=== PATIENT | female | born 1935 | race Caucasian/White ===

== ENCOUNTER 2019-08-12 23:58 | Inpatient (IN) ==
[2019-08-13] MEDS ORDERED: ONDANSETRON 4 MG/2 ML VIAL IV STA (01:01)
[2019-08-13] MEDS ORDERED: SODIUM CHLORIDE 0.9% 500 ML IV STA (01:01)
[2019-08-13] MEDS ORDERED: HYDROmorphone 2 MG/1 ML VIAL IV PRN ×2 (01:01→03:39)
[2019-08-13] MEDS ORDERED: ALUM/MAG/SIMETH/LIDO VISC 1:1 30 ML BOTTLE PO STA (01:01)
[2019-08-13] MEDS ORDERED: PANTOPRAZOLE 40 MG VIAL IV STA (01:01)
[2019-08-13 01:29] LABS: Basophils % 0.5 % (0.0-0.8); Eosinophils % 0.2 % (0.00-10.9); Hematocrit 34.7 VOL% (35.7-47.0); Hemoglobin 12.3 GM/DL (12.0-16.0); Immature Granulocytes % 0.3 %; Immature Granulocytes Absolute 0.03 #; Lymphocytes % 11.8 % (21.3-54.2); Mean Corpuscular HGB Conc 35.4 GM/DL (32-36); Mean Platelet Volume 9.5 FL (9.6-12.0); Monocytes % 12.8 % (1.7-12.7); Neutrophils % 74.4 % (38.7-73.9); Platelet Count 278 T/CUMM (130-400); Red Blood Count 3.99 MC/CUMM (3.8-5.5); Red Cell Distribution Width 11.3 % (9.3-17.3); White Blood Count 8.8 T/CUMM (4-12)
[2019-08-13 01:47] LABS: Albumin 3.5 G/DL (3.4-5.0); Bilirubin,Total 0.8 MG/DL (0.2-1.0); Calcium 9.3 MG/DL (8.5-10.1); Osmolality,Calculated 238.5 MOS/KG (273-304); Total Protein 7.2 G/DL (6.4-8.3)
[2019-08-13] MEDS ORDERED: MAGNESIUM SULF RIDER 2 GM in PREMIX 1 EACH IV STA (02:09)
[2019-08-13] MEDS ORDERED: POTASSIUM CHLORIDE 20 MEQ TABLET PO STA (02:10)
[2019-08-13 03:17] LABS: Apearance,Urine Slightly Hazy (Clear); Bacteria,Urine Occasional /HPF (Few); Bilirubin,Urine Negative (Negative); Blood, Urine Negative (Negative); Glucose,Urine (UA) Negative (Negative); Ketones,Urine 20 mg/dL (Negative); Mucus,Urine Occasional /LPF (Occasional); Nitrite,Urine Negative (Negative); Protein,Urine Negative; RBC,Urine 5 /HPF (0-4); Urine Color Yellow (Yellow); Urine Specific Gravity 1.015 (1.001-1.035); Urine Urobilinogen < 2.0 EU/DL (0.2-1.0); WBC,Urine 1 /HPF (0-6)
[2019-08-13] MEDS ORDERED: ONDANSETRON 4 MG/2 ML VIAL IV PRN (03:39)
[2019-08-13] MEDS ORDERED: ACETAMINOPHEN 325 MG TABLET PO PRN (03:39)
[2019-08-13] MEDS: SODIUM CHLORIDE 0.9% 1,000 ML IV SCH ×3 (04:30→22:13)
[2019-08-13 05:57] LABS: Basophils % 0.3 % (0.0-0.8); Eosinophils % 0.1 % (0.00-10.9); Hematocrit 32.9 VOL% (35.7-47.0); Hemoglobin 11.6 GM/DL (12.0-16.0); Immature Granulocytes % 0.4 %; Immature Granulocytes Absolute 0.03 #; Lymphocytes # 0.7 10*3/uL (1.4-4.0); Lymphocytes % 9.1 % (21.3-54.2); Mean Corpuscular HGB Conc 35.3 GM/DL (32-36); Mean Corpuscular Volume 86.1 FL (87-102); Mean Platelet Volume 9.6 FL (9.6-12.0); Monocytes % 10.7 % (1.7-12.7); Neutrophils % 79.4 % (38.7-73.9); Platelet Count 271 T/CUMM (130-400); Red Blood Count 3.82 MC/CUMM (3.8-5.5); Red Cell Distribution Width 11.7 % (9.3-17.3); White Blood Count 7.2 T/CUMM (4-12)
[2019-08-13 06:09] LABS: Albumin 3.2 G/DL (3.4-5.0); Bilirubin,Total 0.6 MG/DL (0.2-1.0); Calcium 8.8 MG/DL (8.5-10.1); Osmolality,Calculated 246.9 MOS/KG (273-304); Risk Ratio 2.54; Total Protein 6.7 G/DL (6.4-8.3); VLDL CHOLESTEROL 13.8 MG/DL
[2019-08-13] MEDS ORDERED: CALCIUM VITAMIN D3 VITAMIN K PO SCH (09:00)
[2019-08-13] MEDS ORDERED: NON-FORMULARY MEDICATION (Omeprazole 20 MG) PO SCH (09:00)
[2019-08-13] MEDS ORDERED: TRIAMTERENE 50 MG CAPSULE PO SCH (09:00)
[2019-08-13] MEDS: ASCORBIC ACID 500 MG TABLET PO SCH (09:22)
[2019-08-13] MEDS: CETIRIZINE 10 MG TABLET PO SCH (09:22)
[2019-08-13] MEDS: NIFEdipine 10 MG CAPSULE PO SCH (09:22)
[2019-08-13] MEDS: POTASSIUM GLUCONATE 500 MG TABLET PO SCH (09:22)
[2019-08-13] MEDS: DOCUSATE SODIUM 100 MG CAPSULE PO SCH ×2 (09:22→22:12)
[2019-08-13] MEDS: CALCIUM (CARBONATE)/VITAMIN D 500 MG-200 UNIT TABLET PO SCH (09:22)
[2019-08-13] MEDS: PANTOPRAZOLE 40 MG VIAL IV SCH (09:24)
[2019-08-13] MEDS: FLUTICASONE 50 MCG NASAL SPRAY 16 GM BOTTLE BOTH NARES SCH (09:25)
[2019-08-13] MEDS: PIPERACILLIN/TAZOBACTAM 3,375 MG in SODIUM CHLORIDE 0.9% 100 ML IV SCH ×2 (12:11→22:12)
[2019-08-13] MEDS ORDERED: SIMVASTATIN 10 MG TABLET PO SCH (21:00)
[2019-08-14] MEDS: SODIUM CHLORIDE 0.9% 1,000 ML IV SCH (04:19)
[2019-08-14] MEDS: PIPERACILLIN/TAZOBACTAM 3,375 MG in SODIUM CHLORIDE 0.9% 100 ML IV SCH ×2 (04:19→12:21)
[2019-08-14 07:44] LABS: Basophils # 0.1 10*3/uL (0.0-0.2); Basophils % 1.5 % (0.0-0.8); Eosinophils # 0.1 10*3/uL (0.0-0.87); Eosinophils % 2.5 % (0.00-10.9); Hematocrit 31.7 VOL% (35.7-47.0); Hemoglobin 10.8 GM/DL (12.0-16.0); Immature Granulocytes % 0.4 %; Immature Granulocytes Absolute 0.02 #; Lymphocytes # 1.2 10*3/uL (1.4-4.0); Mean Corpuscular HGB Conc 34.1 GM/DL (32-36); Mean Corpuscular Volume 92.2 FL (87-102); Mean Platelet Volume 9.6 FL (9.6-12.0); Monocytes % 16.7 % (1.7-12.7); Neutrophils % 56.9 % (38.7-73.9); Platelet Count 268 T/CUMM (130-400); Red Blood Count 3.44 MC/CUMM (3.8-5.5); Red Cell Distribution Width 12.3 % (9.3-17.3); White Blood Count 5.2 T/CUMM (4-12)
[2019-08-14 08:00] LABS: Albumin 2.8 G/DL (3.4-5.0); Bilirubin,Total 0.4 MG/DL (0.2-1.0); Calcium 8.6 MG/DL (8.5-10.1)
[2019-08-14 08:11] LABS: Eosinophils 3 % (0-10); Lymphocytes 21 % (20-55); Segmented Neutrophils 52 % (50-85); Total Cells Counted 100
[2019-08-14 08:12] LABS: Microcytosis Slight; Platelet Estimate Normal
[2019-08-14 08:13] LABS: Atypical Lymphocytes Few
[2019-08-14] MEDS: POTASSIUM GLUCONATE 500 MG TABLET PO SCH (08:42)
[2019-08-14] MEDS: DOCUSATE SODIUM 100 MG CAPSULE PO SCH (08:42)
[2019-08-14] MEDS: CALCIUM (CARBONATE)/VITAMIN D 500 MG-200 UNIT TABLET PO SCH (08:42)
[2019-08-14] MEDS: ASCORBIC ACID 500 MG TABLET PO SCH (08:42)
[2019-08-14] MEDS: CETIRIZINE 10 MG TABLET PO SCH (08:42)
[2019-08-14] MEDS: NIFEdipine 10 MG CAPSULE PO SCH (08:42)
[2019-08-14] MEDS: FLUTICASONE 50 MCG NASAL SPRAY 16 GM BOTTLE BOTH NARES SCH (08:43)
[2019-08-14] MEDS: PANTOPRAZOLE 40 MG VIAL IV SCH (08:43)
[2019-08-14] MEDS ORDERED: DOCUSATE SODIUM 100 MG CAPSULE PO PRN (10:22)
[2019-08-14 12:13] VITALS: BP 139/55
== END 2019-08-14 15:28 | disposition home or self-care (01) | DRG 372 ==
LOC: N.ED 23:58 → N.EDINP 08-13 03:11 → N.TELEN 08-13 03:38
PROVIDERS: ADMIT Family Medicine; ATTEND Family Medicine

== ENCOUNTER 2022-04-11 07:27 | Inpatient (IN) ==
[2022-04-11] MEDS ORDERED: PROMETHAZINE 25 MG/1 ML VIAL IM PRN (14:14)
[2022-04-11] MEDS ORDERED: ONDANSETRON 4 MG/2 ML VIAL IV PRN (14:14)
[2022-04-11] MEDS ORDERED: ACETAMINOPHEN 325 MG TABLET PO PRN (14:14)
[2022-04-11] MEDS ORDERED: HYDROmorphone 1 MG/1 ML SYRINGE IV PRN (14:14)
[2022-04-11 14:41] LABS: Basophils # 0.1 10*3/uL (0.0-0.2); Basophils % 0.5 % (0.0-0.8); Eosinophils # 0.1 10*3/uL (0.0-0.87); Eosinophils % 1.1 % (0.00-10.9); Hematocrit 33.9 VOL% (35.7-47.0); Hemoglobin 12.2 GM/DL (12.0-16.0); Immature Granulocytes % 0.2 %; Immature Granulocytes Absolute 0.02 #; Lymphocytes # 1.1 10*3/uL (1.4-4.0); Lymphocytes % 12.1 % (21.3-54.2); Mean Platelet Volume 8.9 FL (9.6-12.0); Monocytes # 0.9 10*3/uL (0.11-0.8); Monocytes % 10.1 % (1.7-12.7); Platelet Count 318 T/CUMM (130-400); Red Blood Count 3.94 MC/CUMM (3.8-5.5); Red Cell Distribution Width 11.9 % (9.3-17.3); White Blood Count 9.1 T/CUMM (4-12)
[2022-04-11] MEDS: LACTATED RINGERS 1,000 ML IV SCH ×2 (14:46→23:17)
[2022-04-11 14:58] LABS: Albumin 3.5 G/DL (3.4-5.0); Bilirubin,Total 0.6 MG/DL (0.20-1.00); Calcium 9.1 MG/DL (8.5-10.1); Osmolality,Calculated 250.6 MOS/KG (273-304); Potassium 3.3 MMOL/L (3.5-5.1); Total Protein 6.6 G/DL (6.4-8.2)
[2022-04-11] MEDS: PANTOPRAZOLE 40 MG VIAL IV SCH (21:18)
[2022-04-11] MEDS: MULTIVITAMIN (OCUVITE) TABLET PO SCH (21:25)
[2022-04-11] MEDS: SIMVASTATIN 20 MG TABLET PO SCH (21:25)
[2022-04-11] MEDS: CALCIUM (CARBONATE)/VITAMIN D 600 MG-400 UNIT TABLET PO SCH (21:25)
[2022-04-12 05:35] LABS: Basophils # 0.1 10*3/uL (0.0-0.2); Basophils % 0.8 % (0.0-0.8); Eosinophils # 0.2 10*3/uL (0.0-0.87); Eosinophils % 2.7 % (0.00-10.9); Hematocrit 29.6 VOL% (35.7-47.0); Hemoglobin 10.6 GM/DL (12.0-16.0); Immature Granulocytes % 0.3 %; Immature Granulocytes Absolute 0.02 #; Lymphocytes # 1.4 10*3/uL (1.4-4.0); Lymphocytes % 17.8 % (21.3-54.2); Mean Corpuscular HGB Conc 35.8 GM/DL (32-36); Mean Corpuscular Volume 88.4 FL (87-102); Mean Platelet Volume 9.6 FL (9.6-12.0); Monocytes % 12.3 % (1.7-12.7); Neutrophils % 66.1 % (38.7-73.9); Platelet Count 284 T/CUMM (130-400); Red Blood Count 3.35 MC/CUMM (3.8-5.5); Red Cell Distribution Width 11.9 % (9.3-17.3); White Blood Count 7.8 T/CUMM (4-12)
[2022-04-12 05:53] LABS: Albumin 2.8 G/DL (3.4-5.0); Bilirubin,Total 0.6 MG/DL (0.20-1.00); Calcium 8.7 MG/DL (8.5-10.1); Osmolality,Calculated 256.1 MOS/KG (273-304); Potassium 3.3 MMOL/L (3.5-5.1); Total Protein 5.3 G/DL (6.4-8.2)
[2022-04-12] MEDS: LACTATED RINGERS 1,000 ML IV SCH (05:53)
[2022-04-12] MEDS ORDERED: ENOXAPARIN 40 MG/0.4 ML SYRINGE SUBCUT SCH (06:00)
[2022-04-12] MEDS ORDERED: PANTOPRAZOLE 40 MG TABLET PO SCH ×2 (07:30→09:00)
[2022-04-12] MEDS: SODIUM CHLORIDE 0.9% 1,000 ML IV SCH ×2 (07:53→17:55)
[2022-04-12] MEDS ORDERED: FERROUS SULFATE 325 MG TABLET PO SCH (09:00)
[2022-04-12] MEDS ORDERED: propofoL 200 MG/20 ML VIAL IV ONE (11:19)
[2022-04-12] MEDS ORDERED: LIDOCAINE 2% 5 ML VIAL ONE (11:19)
[2022-04-12] MEDS: POTASSIUM CHLORIDE 10 MEQ TABLET PO SCH (13:27)
[2022-04-12] MEDS: TRIAMTERENE/HCTZ 37.5-25 MG TABLET PO SCH (13:27)
[2022-04-12] MEDS: CALCIUM (CARBONATE)/VITAMIN D 600 MG-400 UNIT TABLET PO SCH ×2 (13:27→21:07)
[2022-04-12] MEDS: CETIRIZINE 10 MG TABLET PO SCH (13:28)
[2022-04-12] MEDS: PANTOPRAZOLE 40 MG VIAL IV SCH ×2 (13:28→21:07)
[2022-04-12] MEDS: MULTIVITAMIN (OCUVITE) TABLET PO SCH ×2 (13:28→21:08)
[2022-04-12] MEDS: POTASSIUM CHLORIDE 20 MEQ TABLET PO PRN ×2 (13:29→18:26)
[2022-04-12] MEDS: SIMVASTATIN 20 MG TABLET PO SCH (21:07)
[2022-04-13] MEDS: SODIUM CHLORIDE 0.9% 1,000 ML IV SCH (03:57)
[2022-04-13] MEDS ORDERED: SODIUM CHLORIDE 0.9% 1,000 ML IV SCH (08:00)
[2022-04-13 08:24] VITALS: BP 152/41
[2022-04-13] MEDS: CALCIUM (CARBONATE)/VITAMIN D 600 MG-400 UNIT TABLET PO SCH (08:31)
[2022-04-13] MEDS: TRIAMTERENE/HCTZ 37.5-25 MG TABLET PO SCH (08:31)
[2022-04-13] MEDS: MULTIVITAMIN (OCUVITE) TABLET PO SCH (08:31)
[2022-04-13] MEDS: PANTOPRAZOLE 40 MG VIAL IV SCH (08:32)
[2022-04-13] MEDS: CETIRIZINE 10 MG TABLET PO SCH (08:32)
[2022-04-13] MEDS: POTASSIUM CHLORIDE 10 MEQ TABLET PO SCH (08:33)
== END 2022-04-13 11:10 | disposition home or self-care (01) | DRG 392 ==
LOC: N.2W → OBSVTOIN 12:16 → N.2W 12:31 → N.3E 04-12 14:43
PROVIDERS: ADMIT Surgery; ATTEND Surgery